=== PATIENT | female | born 1990 | race African-American/Black ===

== ENCOUNTER 2018-12-13 19:37 | Emergency (ER) | payer BC, MEDICAID ==
[~2018-12-13] VITALS: Ht 165.1 cm; Wt 58.0 kg
[2018-12-13] MEDS ORDERED: AMOXICILLIN/POTASSIUM CLAVULANATE 875/125MG TAB PO ONE (23:30)
[2018-12-14 00:11] VITALS: BP 122/82
== END 2018-12-14 00:13 | disposition home or self-care (01) ==
LOC: ER 19:46
DX: O26.892 Other specified pregnancy related conditions, second trimester (principal); S01.351A Open bite of right ear, initial encounter; Z3A.17 17 weeks gestation of pregnancy; Z79.82 Long term (current) use of aspirin; Y04.1XXA Assault by human bite, initial encounter; Y93.89 Activity, other specified; Y92.89 Other specified places as the place of occurrence of the external cause; Y99.8 Other external cause status
CPT/HCPCS: 81025; 99283

== ENCOUNTER 2019-01-31 12:01 | Observation (INO) | payer BC, MEDICAID ==
[~2019-01-31] VITALS: Ht 165.1 cm; Wt 59.9 kg
[2019-01-31] MEDS ORDERED: PNV1TABL76 MT (12:38)
[2019-01-31] MEDS ORDERED: LACTATED RINGERS 1,000 ML IV SCH (13:00)
[2019-01-31] MEDS ORDERED: CEFAZOLIN 2,000 MG in DEXT 5% WATER 100 ML IV SCH (13:00)
[2019-01-31 13:26] LABS: CLARITY URINE CLOUDY (CLEAR); COLOR URINE ORANGE (YELLOW); KETONES URINE TRACE (NEGATIVE); LEUKOCYTE ESTERASE URINE 1+ (NEGATIVE); NITRITE URINE NEGATIVE (NEGATIVE); OCCULT BLOOD URINE NEGATIVE (NEGATIVE); PROTEIN URINE TRACE (NEGATIVE); SPECIFIC GRAVITY URINE 1.029 (1.005-1.030)
== END 2019-01-31 14:45 | disposition home or self-care (01) ==
LOC: 8 EST LDRP 12:01
PROVIDERS: ADMIT Obstetrics & Gynecology; ATTEND Obstetrics & Gynecology
DX: O26.893 Other specified pregnancy related conditions, third trimester (principal); R10.30 Lower abdominal pain, unspecified; N32.89 Other specified disorders of bladder; Z3A.24 24 weeks gestation of pregnancy
CPT/HCPCS: 81003; 96360; 96361; 99281; G0378; J0690; J7060

== ENCOUNTER 2024-03-06 18:06 | Emergency (ER) | payer OTHER, MEDICAID ==
[~2024-03-06] VITALS: Ht 167.6 cm; Wt 81.0 kg
[~2024-03-06 18:06] MED LIST: PNV1TABL76 MT
[2024-03-06 18:23] VITALS: O2SAT 98
[2024-03-06] MEDS ORDERED: CETI1TAB MT (21:49)
[2024-03-06] MEDS ORDERED: FLUT9.9S BOTHNSTRLS (21:49)
[2024-03-06] MEDS ORDERED: CLOT10TR2 MT (21:49)
[2024-03-06 22:06] VITALS: BP 136/76; PULSE 89; RESP 18; TEMP 98.5
== END 2024-03-06 22:08 | disposition home or self-care (01) ==
LOC: ER 18:06
DX: J32.9 Chronic sinusitis, unspecified (principal); B37.0 Candidal stomatitis; Z88.6 Allergy status to analgesic agent
CPT/HCPCS: 99282